=== PATIENT | female | born 2000 | race Caucasian/White ===

== ENCOUNTER 2018-01-18 05:50 | Emergency (ER) | payer BC ==
[2018-01-18] MEDS ORDERED: Ketorolac INJ* 60 MG/2 ML VIAL IM ONE (06:14)
[2018-01-18] MEDS ORDERED: Cyclobenzaprine TAB* 10 MG PO ONE (06:15)
[2018-01-18 06:29] VITALS: BP 122/78
--- NOTE | 2018-01-18 06:44 | ED ---
Laila Casey Nilda, scribed for Felice Henao MD on 01/18/18 at 0619 . Neck Pain - HPI Summary HPI Summary: This patient is a 17 year old F presenting to [facility] with a chief complaint of waking up at 0530 with constant right sided neck pain that radiates down middle of back. The patient rates the pain 7/10 in severity. Symptoms aggravated by movement and alleviated by rest. Patient reports limited ROM of neck secondary to pain. Patient denies fall and trauma. She states she went to PT for previous similar symptoms (September 2017). Pt notes this current pain feels different. Medications include 5mg Lexipro for anxiety. - History of Current Complaint Chief Complaint: EDNeckComplaint Stated Complaint: NECK PAIN Time Seen by Provider: 01/18/18 06:02 Hx Obtained From: Patient Mechanism Of Injury: No Known Trauma Timing: Constant Onset/Duration: Sudden Onset, Started minutes ago, Still Present Severity Currently: Severe Pain Intensity: 7 Pain Scale Used: 0-10 Numeric Location: Discrete At: - right sided neck pain, Radiates To: - middle of back Aggravating Factors: Movement Alleviating Factors: Other: - rest - Allergies/Home Medications Allergies/Adverse Reactions: Allergies Allergy/AdvReac Type Severity Reaction Status Date / Time No Known Allergies Allergy Verified 01/18/18 05:56 Home Medications: Home Medications Escitalopram Oxalate [Lexapro] 5 mg PO DAILY 01/18/18 [History Confirmed ] PMH/Surg Hx/FS Hx/Imm Hx Sensory History: Denies: Hx Legally Blind EENT History: Denies: Hx Deafness Infectious Disease History: No Infectious Disease History: Denies: Traveled Outside the [place] in Last 30 Days - Family History Known Family History: Positive: Diabetes - Social History Alcohol Use: None Substance Use Type: Reports: None Smoking Status (MU): Never Smoked Tobacco Review of Systems Negative: Fever Positive: Decreased ROM - neck, Other - neck pain right side that radiates down middle of back; negative fall or trauma. All Other Systems Reviewed And Are Negative: Yes Physical Exam - Summary Physical Exam Summary: VITAL SIGNS: Reviewed. GENERAL: Patient is a well-developed and nourished female who is lying comfortable in the stretcher. Patient is not in any acute respiratory distress. HEAD AND FACE: No signs of trauma. No ecchymosis, hematomas or skull depressions. No sinus tenderness. EYES: PERRLA, EOMI x 2, No injected conjunctiva, no nystagmus. EARS: Hearing grossly intact. Ear canals and tympanic membranes are within normal limits. MOUTH: Oropharynx within normal limits. Throat nml. NECK: Supple, trachea is midline, no adenopathy, no JVD, no carotid bruit. Mild tenderness to right side. Decreased ROM with [id number]-[id number] motion. ROM normal with flexion/extension. CHEST: Symmetric, no tenderness at palpation LUNGS: Clear to auscultation bilaterally. No wheezing or crackles. CVS: Regular rate and rhythm, S1 and S2 present, no murmurs or gallops appreciated. ABDOMEN: Soft, non-tender. No signs of distention. No rebound no guarding, and no masses palpated. Bowel sounds are normal. EXTREMITIES: FROM in all major joints, no edema, no cyanosis or clubbing. NEURO: Alert and oriented x 3. No acute neurological deficits. Speech is normal and follows commands. SKIN: Dry and warm Triage Information Reviewed: Yes Vital Signs On Initial Exam: Initial Vitals Temp Pulse Resp BP Pulse Ox 97.9 F 81 16 121/73 99 01/18/18 05:51 01/18/18 05:51 01/18/18 05:51 01/18/18 05:51 01/18/18 05:51 Vital Signs Reviewed: Yes Diagnostics - Vital Signs Vital Signs Temp Pulse Resp BP Pulse Ox 01/18/18 05:51 97.9 F 81 16 121/73 99 - Laboratory Lab Statement: Any lab studies that have been ordered have been reviewed, and results considered in the medical decision making process. Neck Course/Dx - Course Assessment/Plan: 17 y/o with no PMHx who woke up with neck pain. Pt states decreased ROM side to side because of pain. Pt is tender on right side of neck. Mild decreased ROM with [id number] movement but flexion/extension is okay. Pt is a-febrile with no other constitutional symptoms. Neuro exam intact. Oral pharynx nml. Symptoms are most likely due to muscle spasm. Pt D/C with Motrin and Flexeril. Pt advised to do heating pads and work on her range of motion. - Diagnoses Provider Diagnoses: Muscle spasms of neck Discharge - Sign-Out/Discharge Documenting (check all that apply): Discharge - home - Discharge Plan Condition: Stable Disposition: HOME Prescriptions: Cyclobenzaprine TAB* [Flexeril 10 MG TAB*] 10 mg PO BID PRN #14 tab PRN Reason: Spasms - Neck Ibuprofen TAB* [Motrin TAB* 800 MG] 800 mg PO Q6H #30 tab Patient Education Materials: Muscle Spasm (ED) Referrals: [facility] - [facility] [Primary Care Provider] - 2 Days Additional Instructions: RETURN TO THE EMERGENCY DEPARTMENT FOR CHANGING OR WORSENING SYMPTOMS. The documentation as recorded by the Laila anderson Nilda accurately reflects the service I personally performed and the decisions made by Juliano tenorio Abdul, MD.
== END 2018-01-18 06:30 | disposition home or self-care (01) ==
LOC: ED 05:50
DX: M62.838 Other muscle spasm (principal)
CPT/HCPCS: 96372; 99282; A9270-GY; J1885